=== PATIENT | male | born 1955 | race Hispanic/Latino ===

== ENCOUNTER 2018-09-18 15:00 | Inpatient (IN) | payer MEDICARE ==
[~2018-09-18] VITALS: Ht 172.7 cm; Wt 132.7 kg
[~2018-09-18 15:00] MED LIST: AMLO10TA7 PO; CARV3.12 PO; OMEP40CA37 PO; XALA2.5OS OD
[2018-09-18 16:03] LABS: APPEARANCE,URINE Clear (CLEAR); BILIRUBIN,URINE Negative (NEGATIVE); COLOR,URINE Yellow (YELLOW); GLUCOSE, URINE (UA) Negative (NEGATIVE); KETONES,URINE Negative (NEGATIVE); LEUKOCYTE ESTERASE ,URINE Negative (NEGATIVE); NITRATE,URINE Negative (NEGATIVE); OCCULT BLOOD,URINE Negative (NEGATIVE); PH,URINE 5.5 (5.0-8.0); PROTEIN,URINE POS 1+ mg/dL (NEGATIVE); UROBILINOGEN,URINE 0.2 mg/dL (0.2-1.0)
[2018-09-18 16:08] VITALS: BP 163/81
[2018-09-18 16:21] LABS: BACTERIA,URINE Few /HPF (None Seen); RBC,URINE None Seen /HPF (0-1)
[2018-09-18] MEDS ORDERED: CARI350T26 PO (16:24)
[2018-09-18] MEDS ORDERED: METF-446 PO (16:26)
[2018-09-18] MEDS ORDERED: OMEP40CA37 PO (16:26)
[2018-09-18] MEDS ORDERED: TIMO5DRO35 OU (16:27)
[2018-09-18] MEDS ORDERED: OXYB5TAB10 PO (16:28)
[2018-09-18] MEDS ORDERED: TAMS0.4C32 PO (16:29)
[2018-09-21] VITALS (26 sets, daily range): BP systolic 120–168; BP diastolic 61–102
[2018-09-21] MEDS ORDERED: CEFAZOLIN SODIUM 1 GM VIAL ONE ×2 (07:34→08:21)
[2018-09-21] MEDS ORDERED: SODIUM CHLORIDE 0.9% 1000ML 1,000 ML IV ONE (07:34)
--- NOTE | 2018-09-21 08:17 | NUR ---
PAIN pt denies pain at rest both knees hurt when ambulating and performing ADLs climbing stairs etc uses a cane on occasion due to pain in knees Addendum: 09/21/18 at 0879 by NING CARRERO RN RN Amended: Links added.
[2018-09-21] MEDS ORDERED: BUPIVACAINE/EPI/PF 0.25% 50 ML VIAL ONE (08:22)
[2018-09-21] MEDS ORDERED: METOCLOPRAMIDE 10 MG/2 ML VIAL ONE ×2 (08:31→12:04)
[2018-09-21] MEDS ORDERED: LIDOCAINE PF 2% 5ML ABBOJECT ONE (08:31)
[2018-09-21] MEDS ORDERED: OXYCODONE HCL 10 MG TAB.SR.12H PO ONE (08:31)
[2018-09-21] MEDS ORDERED: KETOROLAC TROMETHAMINE 15MG/ML ONE (08:31)
[2018-09-21] MEDS ORDERED: PROPOFOL 10 MG/ML 20ML VIAL IV ONE (08:31)
[2018-09-21] MEDS ORDERED: ACETAMINOPHEN EXTRA STRENGTH 500 MG TABLET ONE (08:31)
[2018-09-21] MEDS ORDERED: MIDAZOLAM HCL 1 MG/ML 2ML VIAL ONE (08:32)
[2018-09-21] MEDS ORDERED: ROCURONIUM 10MG/1ML SYR 10 MG/ML ML ONE (08:32)
[2018-09-21] MEDS ORDERED: ONDANSETRON HCL MDV 20ML 2 MG/ML VIAL ONE (08:33)
[2018-09-21] MEDS ORDERED: KETAMINE 50MG/ML SYRINGE 50 MG/ML DISP.SYRIN IV ONE (08:35)
[2018-09-21] MEDS ORDERED: ROPIVACAINE 0.5% 5MG/ML 30ML IJ ONE (08:35)
[2018-09-21] MEDS ORDERED: CEFAZOLIN 3GM /D5W 100ML 100 ML IV ONE (09:00)
[2018-09-21] MEDS ORDERED: TRANEXAMIC ACID 1000MG/10ML IV ONE ×2 (09:21→12:42)
[2018-09-21] MEDS ORDERED: HYDROMORPHONE 1 MG/1 ML AMP ONE ×2 (10:25→12:50)
[2018-09-21] MEDS ORDERED: GLYCOPYRROLATE 1 MG/5 ML SYRINGE ONE (10:37)
[2018-09-21] MEDS ORDERED: FENTANYL CITRATE PF 50 MCG/1 ML 5ML AMP IV ONE (11:13)
[2018-09-21] MEDS ORDERED: NEOSTIGMINE 5MG/5ML SYR IV ONE (12:01)
[2018-09-21] MEDS ORDERED: LIDOCAINE HCL-MPF 1% 2ML VIAL IVP PRN (12:15)
[2018-09-21] MEDS ORDERED: POTASSIUM CHLORIDE 10% ELIXIR 20 MEQ/15 ML UDCUP PO PRN (12:15)
[2018-09-21] MEDS ORDERED: TEMAZEPAM 15 MG CAPSULE PO PRN (12:15)
[2018-09-21] MEDS ORDERED: CALCIUM CARBONATE 500 MG TABLET PO PRN (12:15)
[2018-09-21] MEDS: ACETAMINOPHEN EXTRA STRENGTH 500 MG TABLET PO SCH ×2 (12:15→20:03)
[2018-09-21] MEDS ORDERED: POTASSIUM CHLORIDE 20MEQ/100ML 100 ML IV PRN (12:15)
[2018-09-21] MEDS ORDERED: TRAMADOL HCL 50 MG TABLET PO PRN (12:15)
[2018-09-21] MEDS ORDERED: FERROUS FUMARATE 324 MG TABLET PO PRN (12:15)
[2018-09-21] MEDS ORDERED: OXYCODONE HCL 5 MG TAB PO PRN (12:15)
[2018-09-21] MEDS ORDERED: DiphenhydrAMINE HCL 50 MG/ML VIAL IVP PRN (12:15)
[2018-09-21] MEDS ORDERED: HYDRALAZINE HCL 20 MG/ML VIAL ONE (13:01)
[2018-09-21] MEDS ORDERED: MEPERIDINE-PF 25 MG/ML SYG ONE (13:07)
[2018-09-21] MEDS ORDERED: ONDANSETRON HCL 4 MG/2 ML VIAL ONE (13:28)
--- NOTE | 2018-09-21 13:55 | NUR ---
POST SURGERY PATIENT RECEIVED FROM PACU VIA HOSPITAL BED. HE IS AWAKE AND ALERT. FAMILY IS PRESENT. ALL WERE ORIENTED TO ROOM AND USE OF CALL LIGHT. MONICA DRESSING IS IN PLACE WITH GREEN LIGHT FLASHING. IV IS PATENT WITH NO REDNESS OR SWELLING NOTED TO SITE. BED IS IN LOWEST POSITION AND LOCKED WITH ALL PERSONAL BELONGINGS WITHIN REACH. POST V/S IN PLACE. WILL CONTINUE TO MONITOR.
[2018-09-21] MEDS: KETOROLAC TROMETHAMINE 15MG/ML IV PRN ×2 (14:28→20:04)
[2018-09-21] MEDS ORDERED: CARISOPRODOL 350 MG TABLET PO PRN (15:30)
--- NOTE | 2018-09-21 16:27 | NUR ---
DC PLAN VISITED WITH PATIENT. PATIENT LIVES WITH SPOUSE. INDEPENDENT ABLE TO PERFORM ADL'S. PATIENT HAS NO SERVICES OR DME'S. FEELS SAFE TO RETURN HOME. ALEXIS SIGNED FOR [facility] AND [facility] INFO SENT. Addendum: 09/21/18 at 1630 by CARLOS EID RN CM Amended: Links added.
[2018-09-21] MEDS: INSULIN HUMULIN R 100 UNIT/ML 3ML SQ SCH ×2 (16:40→20:46)
[2018-09-21] MEDS: SODIUM CHLORIDE 0.9% 1000ML 1,000 ML IV SCH ×2 (16:41→22:05)
[2018-09-21] MEDS: CEFAZOLIN 3GM /D5W 100ML 100 ML IV SCH (17:26)
[2018-09-21] MEDS: PREGABALIN 25 MG CAP PO SCH (20:01)
[2018-09-21] MEDS: OXYBUTYNIN CHLORIDE 5 MG TABLET PO SCH (20:02)
[2018-09-21] MEDS: METFORMIN HCL 500 MG TABLET PO SCH (20:02)
[2018-09-21] MEDS: CARVEDILOL 3.125 MG TABLET PO SCH (20:02)
[2018-09-21] MEDS: ASPIRIN 325 MG TABLET PO SCH (20:02)
[2018-09-21] MEDS: OXYCODONE HCL 5 MG TAB PO PRN (20:04)
[2018-09-21] MEDS: LATANOPROST 2.5 ML DROPS OD SCH (20:09)
[2018-09-21] MEDS: ONDANSETRON HCL 4 MG/2 ML VIAL IVP PRN (20:11)
[2018-09-22] MEDS: CEFAZOLIN 3GM /D5W 100ML 100 ML IV SCH (01:00)
[2018-09-22] MEDS: ONDANSETRON HCL 4 MG/2 ML VIAL IVP PRN (03:30)
[2018-09-22] MEDS: KETOROLAC TROMETHAMINE 15MG/ML IV PRN ×2 (03:30→20:03)
[2018-09-22 04:00] VITALS: BP 148/81
[2018-09-22 04:26] LABS: HEMATOCRIT 41.5 % (42-54); MEAN CORPUSCULAR HEMOGLOBIN 29.4 pg (27.0-33.0); MEAN CORPUSCULAR HGB CONC 33.9 g/dL (32.0-36.0); MEAN CORPUSCULAR VOLUME 86.8 fL (79-99); PLATELET COUNT (AUTO) 178 K/uL (130-400); RED BLOOD CELL COUNT(AUTO) 4.78 MIL/uL (4.50-6.20); RED CELL DISTRIBUTION WIDTH 14.1 % (11.0-15.5); WHITE BLOOD COUNT (AUTO) 12.4 K/uL (4.8-10.8)
[2018-09-22 04:44] LABS: CREATININE 1.1 mg/dL (0.5-1.5); POTASSIUM 3.5 mmol/L (3.5-5.1)
[2018-09-22] MEDS: ACETAMINOPHEN EXTRA STRENGTH 500 MG TABLET PO SCH ×3 (04:57→20:08)
[2018-09-22] MEDS: INSULIN HUMULIN R 100 UNIT/ML 3ML SQ SCH ×4 (06:09→20:26)
[2018-09-22] MEDS: POTASSIUM CHLORIDE 20 MEQ ERTAB PO PRN ×2 (06:09→09:06)
[2018-09-22] MEDS: SODIUM CHLORIDE 0.9% 1000ML 1,000 ML IV SCH (08:05)
[2018-09-22 08:22] VITALS: BP 150/87
[2018-09-22] MEDS ORDERED: TAMSULOSIN HCL 0.4 MG CAP.ER.24H PO SCH (09:00)
[2018-09-22] MEDS: TIMOLOL OU SCH ×2 (09:00→20:13)
[2018-09-22] MEDS: ASPIRIN 325 MG TABLET PO SCH ×2 (09:06→20:07)
[2018-09-22] MEDS: POLYETHYLENE GLYCOL 3350 17 GM POWD.PACK PO SCH (09:06)
[2018-09-22] MEDS: OXYBUTYNIN CHLORIDE 5 MG TABLET PO SCH ×2 (09:07→20:08)
[2018-09-22] MEDS: PANTOPRAZOLE SODIUM 40 MG TABLET.DR PO SCH (09:07)
[2018-09-22] MEDS: PREGABALIN 25 MG CAP PO SCH ×2 (09:07→20:08)
[2018-09-22] MEDS: CARVEDILOL 3.125 MG TABLET PO SCH ×2 (09:07→20:08)
[2018-09-22] MEDS: TAMSULOSIN HCL 0.4 MG CAP.ER.24H PO SCH (09:08)
[2018-09-22] MEDS: AMLODIPINE BESYLATE 5 MG TAB PO SCH (09:08)
[2018-09-22] MEDS: METFORMIN HCL 500 MG TABLET PO SCH ×2 (09:08→20:08)
[2018-09-22] MEDS: OXYCODONE HCL 5 MG TAB PO PRN ×3 (09:10→20:03)
[2018-09-22 11:49] VITALS: BP 147/76
[2018-09-22 16:23] VITALS: BP 150/91
[2018-09-22 19:58] VITALS: BP 181/100
[2018-09-22] MEDS: LATANOPROST 2.5 ML DROPS OD SCH (20:13)
[2018-09-22 23:58] VITALS: BP 136/74
[2018-09-23] MEDS: ACETAMINOPHEN EXTRA STRENGTH 500 MG TABLET PO SCH ×2 (03:27→11:45)
[2018-09-23 04:00] VITALS: BP 134/75
[2018-09-23] MEDS: INSULIN HUMULIN R 100 UNIT/ML 3ML SQ SCH ×3 (06:37→16:14)
[2018-09-23] MEDS: KETOROLAC TROMETHAMINE 15MG/ML IV PRN ×2 (06:48→13:47)
[2018-09-23 08:38] VITALS: BP 140/88
[2018-09-23] MEDS: METFORMIN HCL 500 MG TABLET PO SCH (08:42)
[2018-09-23] MEDS: POLYETHYLENE GLYCOL 3350 17 GM POWD.PACK PO SCH (08:42)
[2018-09-23] MEDS: PREGABALIN 25 MG CAP PO SCH (08:42)
[2018-09-23] MEDS: ASPIRIN 325 MG TABLET PO SCH (08:42)
[2018-09-23] MEDS: AMLODIPINE BESYLATE 5 MG TAB PO SCH (08:42)
[2018-09-23] MEDS: TAMSULOSIN HCL 0.4 MG CAP.ER.24H PO SCH (08:42)
[2018-09-23] MEDS: PANTOPRAZOLE SODIUM 40 MG TABLET.DR PO SCH (08:42)
[2018-09-23] MEDS: OXYBUTYNIN CHLORIDE 5 MG TABLET PO SCH (08:43)
[2018-09-23] MEDS: TIMOLOL OU SCH (08:43)
[2018-09-23] MEDS: CARVEDILOL 3.125 MG TABLET PO SCH (08:43)
[2018-09-23] MEDS ORDERED: HYDR-4457 PO (11:09)
[2018-09-23] MEDS ORDERED: ASPI-1012 PO (11:09)
[2018-09-23 11:33] VITALS: BP 146/81
[2018-09-23 16:52] VITALS: BP 143/81
--- NOTE | 2018-09-23 17:00 | NUR ---
DISCHARGE INSTRUCTIONS GIVEN AND EXPLAINED UTILIZING TEACH BACK METHOD, PT/FAMILY VERBALIZE UNDERSTANDING. DISCHARGE TO [facility]. REPORT GIVEN TO TANIA BASSETT RN CALL FOR ANY CONCERNS. [phone] NARAYANAN ON 10/12/18@ 2P.M. CALL OFFICE FOR ANY CONCERNS 13/01 AT [phone] RESUME YOUR PREVIOUS HOME DIET. RESUME YOUR PREVIOUS HOME MEDICATIONS. STOP CARISOPRODOL. PLEASE TAKE PRESCRIPTION MEDS INSTRUCTED. NURSE TO REMOVE DRESSING ON 09/28/18. CONTINUE DAILY DRESSING CHANGES IF NEEDED AFTER 1ST REMOVAL. MAY SHOWER AND GET DRESSING WET. FOLLOW NURSE INSTRUCTIONS TO PROTECT DRESSING'S BATTERY. AMBULATE TOLERATED WITH THE USE OF CRUTCHES OR WALKER UNTIL YOUR ABLE TO WALK INDEPENDENTLY. WHEN RESTING KEEP YOUR LEG ELEVATED BUT AVOID PLACING PILLOWS UNDER YOUR KNEEDS. WEAR BRETT HOSE ON OPERATIVE LEG UPON AWAKING UP UNTIL GOING TO BED FOR THE NIGHT. CALL OFFICE FOR ANY CONCERNS 13/01 AT [phone] IF YOU NEED PRESCRIPTION REFILL ON YOUR PAIN MEDS, PLEASE CALL OFFICE A FEW DAYS BEFORE YOU TAKE YOUR LAST PAIN PILL. PHYSICAL THERAPY: Please follow therapist instructions for: -gait training with walker and weight bearing as tolerated, advance to cane as per therapist discretion -active/passive assisted flexion/extension exercises to operative knee(s) -quadriceps strengthening/hamstring stretching exercises to operative knee(s) -modalities as per physical therapist discretion Call office for any concerns 13/01 at CALL 911 OR GO TO EMERGENCY ROOM IF YOU HAVE ANY CHEST PAIN/DISCOMFORT, SHORTNESS OF BREATH/DIFFICULTY BREATHING OR NEEDED.
[2018-09-23] MEDS ORDERED: BISACODYL 10 MG SUPP.RECT RC ONE (17:40)
[2018-09-24] MEDS ORDERED: BISACODYL 10 MG SUPP.RECT RC PRN (12:15)
== END 2018-09-23 19:29 | disposition home health service (06) | DRG 470 ==
LOC: DAHIP 09-21 06:46 → 4AH 09-21 12:51
PROVIDERS: ADMIT Orthopaedic Surgery; ATTEND Orthopaedic Surgery
PROC: 0SRD0J9 Replacement of Left Knee Joint with Synthetic Substitute, Cemented, Open Approach (ICD-10-PCS; principal; 2018-09-21 11:09)
PROC: 3E0T3BZ Introduction of Anesthetic Agent into Peripheral Nerves and Plexi, Percutaneous Approach (ICD-10-PCS; 2018-09-21 11:09)
DX: M17.12 Unilateral primary osteoarthritis, left knee (principal); E11.9 Type 2 diabetes mellitus without complications; H40.9 Unspecified glaucoma; I10 Essential (primary) hypertension; G89.29 Other chronic pain; M48.00 Spinal stenosis, site unspecified; Z82.49 Family history of ischemic heart disease and other diseases of the circulatory system; Z83.3 Family history of diabetes mellitus; Z85.46 Personal history of malignant neoplasm of prostate; Z79.84 Long term (current) use of oral hypoglycemic drugs; Z79.899 Other long term (current) drug therapy
CPT/HCPCS: 36415; 80048; 81001; 82948; 84132; 85027; 88304; 88311; 97039; A4218; G0378; J0360; J0690; J1170; J1815; J1885; J2001; J2175; J2250; J2405; J2704; J2710; J2765; J2795; J3010; J3490; J7030

== ENCOUNTER → 2020-01-07 | Outpatient (CLI) | payer MEDICARE ==
[~2020-01-07] MED LIST changes: +ASPI-1012 PO; +HYDR-4457 PO; +METF-446 PO; +OMEP40CA13 PO; -OMEP40CA37 PO; +OXYB5TAB15 PO; +TAMS0.4C32 PO; +TIMO5DRO35 OU
== END | disposition home or self-care (01) ==
LOC: SHCH 08:55
PROVIDERS: ATTEND Internal Medicine Cardiovascular Disease
DX: I08.0 Rheumatic disorders of both mitral and aortic valves (principal); I10 Essential (primary) hypertension
CPT/HCPCS: 93306; 93356

== ENCOUNTER → 2020-02-02 | Outpatient (CLI) | payer MEDICARE | END | disposition home or self-care (01) | LOC: SHCH 09:02 | PROVIDERS: ATTEND Internal Medicine Cardiovascular Disease | DX: I70.1 Atherosclerosis of renal artery (principal) | CPT/HCPCS: 93975 ==

== ENCOUNTER → 2020-03-09 | Outpatient (CLI) | payer MEDICARE | END | disposition home or self-care (01) | LOC: RAH 12:58 | PROVIDERS: ATTEND Family Medicine | DX: R51 Headache (principal) | CPT/HCPCS: 70450 ==

== ENCOUNTER 2023-12-17 11:21 | Emergency (ER) | payer MEDICARE ==
[~2023-12-17] VITALS: Ht 170.2 cm; Wt 120.7 kg
[~2023-12-17 11:21] MED LIST changes: +AMLO-258 PO; -AMLO10TA7 PO; +DOCU-116 PO; +LACT10SO9 PO; -OMEP40CA13 PO; +OMEP40CA21 PO; -OXYB5TAB15 PO; +OXYB5TAB20 PO; -TIMO5DRO35 OU; +TIMO5DRO47 OU
[2023-12-17] MEDS: CYCLOBENZAPRINE HCL 10 MG TABLET PO ONE (13:46)
[2023-12-17] MEDS: ACETAMINOPHEN WITH CODEINE 1 TAB TAB PO ONE (13:47)
[2023-12-17] MEDS: KETOROLAC 60 MG VIAL (30MG/ML) IM ONE (13:47)
[2023-12-17 14:19] LABS: APPEARANCE,URINE CLEAR (CLEAR); BILIRUBIN,URINE NEGATIVE (NEGATIVE); COLOR,URINE LIGHT-YELLOW (YELLOW); GLUCOSE, URINE (UA) NEGATIVE (NEGATIVE); KETONES,URINE NEGATIVE (NEGATIVE); LEUKOCYTE ESTERASE ,URINE NEGATIVE Leu/uL (NEGATIVE); NITRATE,URINE NEGATIVE (NEGATIVE); OCCULT BLOOD,URINE NEGATIVE (NEGATIVE); PH,URINE 5.5 (5.0-8.0); PROTEIN,URINE NEGATIVE (NEGATIVE); UROBILINOGEN,URINE 0.2 mg/dL (0.2-1.0)
[2023-12-17 14:20] LABS: ADD UA MICROSCOPIC YES
[2023-12-17 14:21] LABS: MUCUS,URINE RARE LPF (None Seen); SQUAMOUS EPITHELIAL CELL,UR RARE /HPF (0-2); WBC,URINE 0-1 /HPF (0-1)
[2023-12-17] MEDS ORDERED: METH4TAB3 PO (14:36)
[2023-12-17] MEDS ORDERED: CYCL10TA16 PO (14:36)
[2023-12-17] MEDS ORDERED: IBUP-2077 PO (14:36)
[2023-12-17 14:53] VITALS: BP 144/88; PULSE 99; RESP 18; O2SAT 99
== END 2023-12-17 14:55 | disposition home or self-care (01) ==
LOC: EDH 11:21
DX: G89.29 Other chronic pain (principal); M54.50 Low back pain, unspecified; I10 Essential (primary) hypertension; E11.9 Type 2 diabetes mellitus without complications; E78.00 Pure hypercholesterolemia, unspecified; Z79.82 Long term (current) use of aspirin; Z79.84 Long term (current) use of oral hypoglycemic drugs; Z98.890 Other specified postprocedural states; Z88.2 Allergy status to sulfonamides
CPT/HCPCS: 99284; 81001; 72100; 96372; J1885; 96374

== ENCOUNTER → 2023-12-26 | Outpatient (CLI) | payer MEDICARE ==
[~2023-12-26] MED LIST changes: +CYCL10TA16 PO; +IBUP-2077 PO; +METH4TAB3 PO
[2023-12-26] MEDS: REGADENOSON 0.4 MG/5 ML PF SYG IVP ONE (12:19)
== END | disposition home or self-care (01) ==
LOC: SHCH 07:59
PROVIDERS: ATTEND Internal Medicine Cardiovascular Disease
DX: R07.9 Chest pain, unspecified (principal)
CPT/HCPCS: 78452; 93017; J2785; A9500 ×2; 96374

== ENCOUNTER 2024-07-08 23:23 | Emergency (ER) | payer MEDICARE ==
[~2024-07-08] VITALS: Ht 170.2 cm; Wt 119.3 kg
[2024-07-08 23:58] LABS: BASOPHILS # (AUTO) 0.08 K/uL (0.00-0.20); BASOPHILS % (AUTO) 0.8 % (0.0-5.0); EOSINOPHILS # (AUTO) 0.36 K/uL (0.00-0.70); EOSINOPHILS % (AUTO) 3.8 % (0.0-8.0); HEMATOCRIT 43.3 % (42-54); IMMATURE GRANULOCYTE ABSOLUTE 0.03 K/uL (0-1); LYMPHOCYTES # (AUTO) 1.6 K/uL (1.0-4.8); LYMPHOCYTES % (AUTO) 16.5 % (21.0-51.0); MEAN CORPUSCULAR HEMOGLOBIN 29.6 pg (27.0-33.0); MEAN CORPUSCULAR HGB CONC 33.5 g/dL (32.0-36.0); MEAN CORPUSCULAR VOLUME 88.4 fL (79-99); MONOCYTES # (AUTO) 0.6 K/uL (0.1-1.0); NEUTROPHILS # (AUTO) 6.9 K/uL (1.8-7.7); NEUTROPHILS % (AUTO) 72.6 % (40.0-77.0); PLATELET COUNT (AUTO) 162 K/uL (130-400); RED CELL DISTRIBUTION WIDTH 13.1 % (11.0-15.5); WHITE BLOOD COUNT (AUTO) 9.5 K/uL (4.8-10.8)
[2024-07-09 00:14] LABS: CREATININE 1.5 mg/dL (0.5-1.3); POTASSIUM 4.3 mmol/L (3.5-5.1)
[2024-07-09 00:18] LABS: ALBUMIN 3.5 g/dL (3.5-5.0); BILIRUBIN,DIRECT 0.2 mg/dL (0.0-0.3); BILIRUBIN,TOTAL 0.6 mg/dL (0.2-1.0)
--- NOTE | 2024-07-09 01:34 | ERN ---
General Chief Complaint: Abdominal Pain Stated Complaint: C/O RUQ PAIN RADIATING TO BACK WITH NAUSEA Time Seen by MD: 23:33 Time Seen by Midlevel: 23:33 Source: patient History of Present Illness Initial Comments 59-year-old male with a past medical history of cholelithiasis presents to the emergency department with sudden onset of right upper quadrant abdominal pain. Patient was aware that he was gallstones. He reports similar episodes in the past that landed him in the emergency department but was ultimately discharged with a negative workup. Today he states his pain started after eating. No nausea, vomiting, fever, chills, or any other symptoms reported at this time. Allergies: Coded Allergies: Sulfa (Sulfonamide Antibiotics) (Verified Allergy, Unknown, 03/24/17) Home Meds Active Scripts Methylprednisolone (Medrol) 4 Mg Tab.ds.pk, 4 MG PO AD, #1 UNIT Prov:ORTEGA WALKER NP 12/17/23 Cyclobenzaprine HCl (Flexeril) 10 Mg Tab, 10 MG PO TID for muscle sstiffness, #30 TAB 0 Refills Prov:ORTEGA WALKER NP 12/17/23 Ibuprofen (Ibuprofen 800 mg Tab) 800 Mg Tab, 800 MG PO Q8H PRN for fever or pain, #30 TAB 0 Refills Prov:ORTEGA WALKER NP 12/17/23 Docusate Sodium (Colace) 100 Mg Capsule, 100 MG PO BID PRN for CONSTIPATION, #60 CAP Prov:ROSALEE VIRAMONTES MD 03/17/23 Lactulose (Lactulose) 20 Gram/30 Ml Solution, 20 GM PO DAILY, #250 ML Prov:ROSALEE VIRAMONTES MD 03/17/23 Hydrocodone/Acetaminophen ([place] 5-325 Tablet) 1 Each Tablet, 1-2 EACH PO Q6HPRN PRN for PAIN, #60 TAB Prov:LEENA NARAYANAN MD 09/23/18 Aspirin (ASPIRIN) 325 Mg Tablet, 325 MG PO BID, #40 TAB Prov:LEENA NARAYANAN MD 09/23/18 Reported Medications Tamsulosin HCl (Tamsulosin HCl) 0.4 Mg Cap.er.24h, 0.4 MG PO DAILY, CAPSULE.DR 09/18/18 Oxybutynin Chloride (Oxybutynin Chloride) 5 Mg Tablet, 5 MG PO BID, TAB 09/18/18 Timolol (Betimol) 5 Ml Drops, 1 DROP OU BID, DROP 09/18/18 Omeprazole (Omeprazole) 40 Mg Capsule.dr, 40 MG PO DAILY, CAP 09/18/18 Metformin HCl (Metformin HCl) 1,000 Mg Tablet, 1000 MG PO BID, TAB 09/18/18 Latanoprost (Xalatan 0.005% Ophth Soln) 20 Drop/Ml Opsol, 20 DROP OD HS, DROP 03/24/17 Amlodipine Besylate (Amlodipine Besylate) 10 Mg Tablet, 10 MG PO DAILY, TAB 03/24/17 Carvedilol (Carvedilol) 3.125 Mg Tablet, 3.125 MG PO BID, TAB 03/24/17 Past Medical History Past Medical History: Diabetes-Type II, High Cholesterol, Hypertension, Other Medical History Other: HX OF ACID REFLUX; HX OF GALLSTONES Past Surgical History: Other Surgical History Other: LEFT KNEE SX Social History Social History: Negative, Lives with family ROS Dictation CONSTITUTIONAL: Negative except for HPI HEAD/FACE: Negative except for HPI EENT: Negative except for HPI RESPIRATORY: Negative except for HPI GASTROINTESTINAL/ABDOMINAL: Negative except for HPI GENITOURINARY: Negative except for HPI MUSCULOSKELETAL: Negative except for HPI INTEGUMENTARY: Negative except for HPI NEUROLOGICAL/PSYCH: Negative except for HPI HEMATOLOGIC/LYMPHATIC: Negative except for HPI All Systems Negative, Except as noted above. 13 point review of systems assessed and all negative except for above. Physical Exam Physical Exam Dictation Vital Signs reviewed General Appearance: Alert, oriented x 3, no acute distress, well developed, nourished. Head and Face: non-traumatic. Eyes: PERRL, pink conjunctivas, eyelid no trauma, anterior chamber with arcus senilis. Ears: Pinnas intact and no signs of trauma or erythema ear canals clear and no discharge TM no erythema Nose: No discharge, no bleeding. Oropharynx: Mouth normal, tongue pink, pharynx clear,no erythema, tonsils no exudates, no abscesses noted, mucous membrane moist Neck: Supple, non-tender, no thyromegaly, no masses, no JVD, no bruits Breast:Deferred Chest:No tenderness, no crepitus, no paradoxical movement, no retractions Lungs:Clear, well-ventilated, symmetric, no rales, no wheezing, no rhonchi, no stridor, good breath sounds bilaterally Heart: Regular rate, regular rhythm, no murmur, no gallops Vascular: no peripheral edema, Abdomen: Soft, positive bowel sounds, nondistended, no guarding, Right upper quadrant abdominal tenderness no rebound, no masses no hepatomegaly, no splenomegaly, no Bentley's sign, no hernias. Rectal: Deferred Genital: Deferred Neurological: Normal speech, motor function intact, sensory function intact Musculoskeletal: Neck nontender, full range of motion, back nontender, full range of motion, Extremities: nontender, full range of motion Skin: Color pink, dry, no turgor, no rash, no lacerations, no abrasions, no contusions. Lymphatic: Deferred Results Laboratory and Microbiology Lab and Micro Result Laboratory Tests Test 07/08/24 23:51 White Blood Count 9.5 K/uL (4.8-10.8) Red Blood Count 4.90 MIL/uL (4.50-6.20) Hemoglobin 14.5 g/dL (14.0-18.0) Hematocrit 43.3 % (42-54) Mean Corpuscular Volume 88.4 fL (79-99) Mean Corpuscular Hemoglobin 29.6 pg (27.0-33.0) Mean Corpuscular Hemoglobin Concent 33.5 g/dL (32.0-36.0) Red Cell Distribution Width 13.1 % (11.0-15.5) Platelet Count 162 K/uL (130-400) Mean Platelet Volume 9.3 fL (7.5-10.5) Immature Granulocyte % (Auto) 0.3 % (0-1) Neutrophils (%) (Auto) 72.6 % (40.0-77.0) Lymphocytes (%) (Auto) 16.5 % (21.0-51.0) L Monocytes (%) (Auto) 6.0 % (3.0-13.0) Eosinophils (%) (Auto) 3.8 % (0.0-8.0) Basophils (%) (Auto) 0.8 % (0.0-5.0) Neutrophils # (Auto) 6.9 K/uL (1.8-7.7) Lymphocytes # (Auto) 1.6 K/uL (1.0-4.8) Monocytes # (Auto) 0.6 K/uL (0.1-1.0) Eosinophils # (Auto) 0.36 K/uL (0.00-0.70) Basophils # (Auto) 0.08 K/uL (0.00-0.20) Absolute Immature Granulocyte (auto 0.03 K/uL (0-1) Nucleated Red Blood Cells 0.0 % (0.0-0.19) Sodium Level 141 mmol/L (136-145) Potassium Level 4.3 mmol/L (3.5-5.1) Chloride Level 104 mmol/L (101-111) Carbon Dioxide Level 29 mmol/L (21-32) Blood Urea Nitrogen 21 mg/dL (7-18) H Creatinine 1.5 mg/dL (0.5-1.3) H Glomerular Filtration Rate Calc 51 mL/min (>90) Random Glucose 138 mg/dL (70-105) H Total Calcium 9.8 mg/dL (8.5-10.1) Total Bilirubin 0.6 mg/dL (0.2-1.0) Direct Bilirubin 0.2 mg/dL (0.0-0.3) Aspartate Amino Transf (AST/SGOT) 101 U/L (10-37) H Alanine Aminotransferase (ALT/SGPT) 38 U/L (12-78) Alkaline Phosphatase 76 U/L (50-136) Troponin I High Sensitivity 9 ng/L (4-75) Total Protein 7.0 g/dL (6.0-8.3) Albumin 3.5 g/dL (3.5-5.0) Lipase 60 U/L (16-77) Labs Reviewed?: Yes MDM MDM: 59-year-old male with a past medical history of cholelithiasis presents to the emergency department with sudden onset of right upper quadrant abdominal pain. Patient was aware that he was gallstones. He reports similar episodes in the past that landed him in the emergency department but was ultimately discharged with a negative workup. Today he states his pain started after eating. No nausea, vomiting, fever, chills, or any other symptoms reported at this time. On physical examination patient is in no acute distress. Initial vital signs are stable. Abdominal examination is remarkable for right upper quadrant tenderness with no rebound or guarding. CBC shows no leukocytosis. Chemistries show a slight bump in his creatinine at 1.5. His liver function tests are normal. Bilirubin is normal. Lipase is normal. Right upper quadrant ultrasound reveals cholelithiasis with no evidence of cholecystitis. There was no gallbladder wall distention or pericholecystic fluid. Symptoms most likely related to biliary colic. We will avoid nephrotoxic medication at this time. Patient was given 2 mg of morphine IM and will be discharged home with supportive management. Patient was advised that he needs to see general surgeon outpatient for removal of the gallbladder. Patient understands and all questions have been answered. Return precautions discussed Differential diagnosis: Biliary colic, cholelithiasis, acute cholecystitis, pancreatitis There are no social concerns with this patient. Prescription drug management Prescriptions will include: None Medical management and examination interpretation discussions were had by me with other qualified healthcare professionals as indicated for the patient's care. ED Course Orders Procedure Category Date Status Time 12 Lead Ekg Tracing- EKG 07/08/24 Logged Technical 23:37 Cbc With Differential LAB 07/08/24 Complete 23:37 Basic Metabolic Panel LAB 07/08/24 Complete 23:37 Hepatic Function Panel LAB 07/08/24 Complete 23:37 Lipase LAB 07/08/24 Complete 23:37 Troponin I High LAB 07/08/24 Complete Sensitivity 23:37 Us Abdominal Ruq\Ltd US 07/08/24 Taken 23:37 Morphine 2mg Syg PHA 07/09/24 Complete (Morphine 2mg Syg) 01:30 Current Medications Medications (Trade) Dose Ordered Sig/Jo-Ann Route PRN Reason Start Time Stop Time Status Last Admin Dose Admin Morphine Sulfate (morPHINE 2MG SYG) 2 mg ONCE ONCE IM 07/09/24 01:30 07/09/24 01:31 DC 07/09/24 01:50 Vital Signs Date Time Temp Pulse Resp B/P (MAP) Pulse Ox O2 Delivery O2 Flow Rate FiO2 07/09/24 01:10 98.4 18 139/74 98 Room Air* 0 21 07/08/24 23:27 98.1 69 20 164/81 97 Room Air DX & DISP Disposition: Discharge Departure Impression: Primary Impression: Biliary colic Additional Impression: Cholelithiasis Condition: Stable Additional Instructions: Your blood work today is stable. There is a slight bump in your creatinine at 1.5. Please avoid taking any ibuprofen/Motrin/Advil as this may worsen your kidney function. Please hydrate over the next couple of days. If you need to take medication you may take Tylenol as needed for pain. Please follow up with your primary care doctor in 2-3 days for repeat evaluation. You will need to see a general surgeon outpatient for removal of your gallbladder. If you develop any new or worsening symptoms please report to the ER for further evaluation. Referrals: ENRIKE DOMÍNGUEZ (PCP) CHELSEA VIVEROS MD Time of Disposition: 01:33 I have reviewed the case, and I agree with, Diagnosis and Plan I performed the substantive portion of the visit. I have reviewed and personally made and approve the management plan that is documented in the note by myself or the DAVID. I acknowledge for responsibility for the patient's management plan. ENRIKE ERAZO Jul 09, 2024 01:34
[2024-07-09] MEDS: morPHINE 2 MG SYG IM ONE (01:50)
[2024-07-09 02:12] VITALS: BP 130/74; PULSE 80; RESP 18; TEMP 98.2; O2SAT 98
--- NOTE | 2024-07-09 05:11 | EKG ---
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
--- NOTE | 2024-07-09 08:25 | HMCIMG ---
US ABDOMINAL RUQ\E\LTD HISTORY: r/o acute shira COMPARISON: None FINDINGS: There is mild fatty infiltration of the liver. There are no focal liver masses. The liver is not enlarged.There are stones present within the gallbladder. Gallbladder appears contracted. There is no wall thickening or edema. Common duct is normal. Right kidney is normal with no evidence of mass, hydronephrosis or stone.The pancreas is obscured by overlying bowel gas. IMPRESSION: 1. Contracted gallbladder filled with stones. 2. Mild fatty infiltration of the liver. 3. Otherwise unremarkable exam although the pancreas was not well visualized.
== END 2024-07-09 02:14 | disposition home or self-care (01) ==
LOC: EDH 23:23
DX: K80.50 Calculus of bile duct without cholangitis or cholecystitis without obstruction (principal); K80.20 Calculus of gallbladder without cholecystitis without obstruction; E11.9 Type 2 diabetes mellitus without complications; E78.00 Pure hypercholesterolemia, unspecified; I10 Essential (primary) hypertension; K21.9 Gastro-esophageal reflux disease without esophagitis; Z79.82 Long term (current) use of aspirin; Z79.84 Long term (current) use of oral hypoglycemic drugs; Z79.899 Other long term (current) drug therapy; Z88.2 Allergy status to sulfonamides
CPT/HCPCS: 99285; 76705; 80076; 84484; 80048; 83690; 85025; 36415; 93005; 96372; J2270